=== PATIENT | male | born 1940 | race Caucasian/White ===

== ENCOUNTER → 2022-06-24 | Outpatient (CLI) | payer MEDICARE ==
--- NOTE | 2022-06-25 09:35 | CA ---
Transthoracic Echo Report Name: Tanmay Belcher Age: 82 Gender: M : 1940 Exam Date: 06/24/2022 12:53 Exam Location: [facility] Ht (in): 65 Wt (lb): 155 Ordering Physician: Ken Carmona DO Attending/Referring Phys: Aleshia Galicia [facility] [employer] Tayler Tobar RDCS Procedure CPT: Indications: R01.1 Cardiac Hx: Technical Quality: Fair Contrast 1: Total Dose (mL): Contrast 2: Total Dose (mL): MEASUREMENTS (Male / Female) Normal Values 2D ECHO LV Diastolic Diameter PLAX 3.7 cm 4.2 - 5.9 / 3.9 - 5.3 cm LV Systolic Diameter PLAX 2.5 cm IVS Diastolic Thickness 1.1 cm 0.6 - 1.0 / 0.6 - 0.9 cm LVPW Diastolic Thickness 1.3 cm 0.6 - 1.0 / 0.6 - 0.9 cm LV Relative Wall Thickness 0.7 RV Internal Dim ED PLAX 3.3 cm LA Volume 47.9 cm??? 18 - 58 / 22 - 52 cm??? M-MODE Aortic Root Diameter MM 3.2 cm LA Systolic Diameter MM 3.2 cm LA Ao Ratio MM 1.0 AV Cusp Separation MM 1.8 cm DOPPLER AV Peak Velocity 106.9 cm/s AV Peak Gradient 4.6 mmHg AV Mean Velocity 73.7 cm/s AV Mean Gradient 2.4 mmHg AV Velocity Time Integral 25.2 cm LVOT Peak Velocity 103.9 cm/s LVOT Peak Gradient 4.3 mmHg LVOT Velocity Time Integral 23.7 cm MV Area PHT 4.0 cm??? Mitral E Point Velocity 94.0 cm/s Mitral A Point Velocity 46.1 cm/s Mitral E to A Ratio 2.0 MV Deceleration Time 187.4 ms MV E' Velocity 8.7 cm/s Mitral E to MV E' Ratio 10.9 TR Peak Velocity 260.8 cm/s TR Peak Gradient 27.2 mmHg Right Ventricular Systolic Press 31.9 mmHg FINDINGS Left Ventricle Left ventricular cavity size normal. Mildly increased left ventricular wall thickness. Abnormal (paradoxical) septal motion consistent with postoperative state or LBBB. Normal left ventricular systolic function with no obvious regional wall motion abnormalities. Left ventricular ejection fraction is estimated at 55-60 %. Right Ventricle Normal right ventricular size and function. Right ventricular systolic pressure within normal limits. Right Atrium Normal right atrial size. Left Atrium Normal left atrial size. Mitral Valve Structurally normal mitral valve. Mild mitral regurgitation. Aortic Valve Trileaflet aortic valve. No aortic valve stenosis or regurgitation. Tricuspid Valve Structurally normal tricuspid valve. Mild tricuspid regurgitation. Pulmonic Valve Structurally normal pulmonic valve.mild pulmonic regurgitation. Pericardium No pericardial effusion. Aorta Normal size aortic root and proximal ascending aorta. CONCLUSIONS Left ventricular ejection fraction 55-60% RVSP 32 Mild mitral regurgitation Mild tricuspid regurgitation No pericardial effusion Previewed by: Dr. Antonio Alonzo DO (Electronically Signed) Final Date: 25 Jun 2022 09:34
== END | disposition home or self-care (01) ==
LOC: RADECHMAIN 12:42
PROVIDERS: ATTEND Internal Medicine Cardiovascular Disease
DX: I08.1 Rheumatic disorders of both mitral and tricuspid valves (principal); R01.1 Cardiac murmur, unspecified
CPT/HCPCS: 93306

== ENCOUNTER → 2024-01-05 | Outpatient (CLI) | payer MEDICARE ==
--- NOTE | 2024-01-05 13:58 | US ---
EXAMINATION TYPE: US carotid duplex BILAT DATE OF EXAM: 01/05/2024 COMPARISON: NONE CLINICAL INDICATION: Male, 83 years old with history of R09.89 R01.1; patient states pre stress test testing, no symptoms, no h/o stroke Additional History: .... TECHNIQUE: Grayscale, color Doppler and spectral Doppler evaluation of the bilateral carotid systems and vertebral arteries. Indirect Doppler criteria was utilized. FINDINGS: EXAM MEASUREMENTS: RIGHT: Peak Systolic Velocity (PSV) cm/sec ----- Right CCA: 96.9 ----- Right ICA: 129.0 ----- Right ECA: 110.0 ICA/CCA ratio: 1.3 RIGHT: End Diastole cm/sec ----- Right CCA: 11.1 ----- Right ICA: 22.2 ----- Right ECA: 0.0 LEFT: Peak Systolic Velocity (PSV) cm/sec ----- Left CCA: 91.6 ----- Left ICA: 138 ----- Left ECA: 173 ICA/CCA ratio: 1.5 LEFT: End Diastole cm/sec ----- Left CCA: 13.6 ----- Left ICA: 39.3 ----- Left ECA: 0.0 VERTEBRALS (direction of flow): Right Vertebral: Antegrade Left Vertebral: Antegrade Rhythm: Arrhythmia COLLECTION ANALYST NOTES: Mild homogeneous plaque with no stenosis seen Color Doppler imaging shows patency with blood flow throughout the carotid artery. Spectral waveforms are within normal limits. 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 Left: 50-69% stenosis of the carotid bifurcation. Criteria for Assigning % of Stenosis / Diameter reduction (Estimation based on the indirect measurements of the internal carotid artery velocities (ICA PSV). 1. Normal (no stenosis)=ICA PSV < 125 cm/s: ratio < 2.0: ICA EDV<40 cm/s. 2. Less than 50% stenosis=ICA PSV < 125 cm/s: ratio < 2.0: ICA EDV<40 cm/s. 3. 50 to 69% stenosis=ICA PSV of 125 to 230 cm/s: ration 2.0 ? 4.0: ICA EDV 40-100 cm/s. 4. Greater than 70% stenosis to near occlusion= ICA PSV > 230 cm/s: ratio > 4.0: ICA EDV > 100 cm/s. 5. Near occlusion= ICA PSV velocities may be low or undetectable: variable ratio and ICA EDV. 6. Total occlusion=unable to detect flow. [facility], , 01/05/2024 1:56 PM
--- NOTE | 2024-01-06 17:35 | CA ---
Transthoracic Echo Report Name: Tanmay Belcher Age: 83 Gender: M : 1940 Exam Date: 01/05/2024 14:32 Exam Location: [place] [facility] Ht (in): 65 Wt (lb): 150 Ordering Physician: Ken Carmona DO Attending/Referring Phys: Ken Carmona DO [employer] [place], BAM Procedure CPT: Indications: R01.1 Murmur Cardiac Hx: CABG Technical Quality: Fair Contrast 1: Total Dose (mL): Contrast 2: Total Dose (mL): MEASUREMENTS (Male / Female) Normal Values 2D ECHO LV Diastolic Volume MOD BP 47.4 cm??? 67 - 155 / 56 - 104 cm??? LV Systolic Volume MOD BP 14.1 cm??? 22 - 58 / 19 - 49 cm??? LV Ejection Fraction MOD BP 70.2 % >= 55 % LV Cardiac Index MOD BP 1142.0 cm???/min???m??? LV Diastolic Volume MOD 4C 53.3 cm??? LV Systolic Volume MOD 4C 11.7 cm??? LV Ejection Fraction MOD 4C 78.0 % LV Cardiac Index MOD 4C 1426.1 cm???/min???m??? LV Diastolic Length 4C 6.5 cm LV Systolic Length 4C 4.9 cm LV Diastolic Volume MOD 2C 40.0 cm??? LV Systolic Volume MOD 2C 16.3 cm??? LV Ejection Fraction MOD 2C 59.2 % LV Cardiac Index MOD 2C 813.0 cm???/min???m??? LV Diastolic Length 2C 6.2 cm LV Systolic Length 2C 5.4 cm LA Volume 36.0 cm??? 18 - 58 / 22 - 52 cm??? LA Volume Index 20.2 cm???/m??? 16 - 28 cm???/m??? M-MODE Aortic Root Diameter MM 2.5 cm LA Systolic Diameter MM 3.4 cm LA Ao Ratio MM 1.4 DOPPLER AV Peak Velocity 92.0 cm/s AV Peak Gradient 3.4 mmHg MV Area PHT 2.0 cm??? Mitral E Point Velocity 80.5 cm/s Mitral A Point Velocity 83.5 cm/s Mitral E to A Ratio 1.0 MV Deceleration Time 378.9 ms TR Peak Velocity 237.5 cm/s TR Peak Gradient 22.6 mmHg FINDINGS Left Ventricle Left ventricular ejection fraction is estimated at 55-60 %. Left ventricular cavity size normal. Left ventricular wall thickness normal. No obvious regional wall motion abnormalities. Right Ventricle Mild right ventricular dilatation. Right ventricular systolic pressure within normal limits. Right Atrium Mild right atrial dilatation. Left Atrium Mild left atrial dilatation. Mitral Valve Structurally normal mitral valve. Mild mitral regurgitation. No mitral stenosis. Aortic Valve Trileaflet aortic valve. No aortic stenosis. Trace aortic regurgitation. Tricuspid Valve Structurally normal tricuspid valve. Mild tricuspid regurgitation. No tricuspid stenosis. Pulmonic Valve Structurally normal pulmonic valve. Trace pulmonic regurgitation. No pulmonic stenosis. Pericardium No pericardial or pleural effusion. Aorta Normal size aortic root and proximal ascending aorta. CONCLUSIONS Left ventricular ejection fraction is estimated at 55-60 %. No obvious regional wall motion abnormalities. Mild RV dilatation. Mild biatrial dilatation Mild mitral regurgitation, mild tricuspid regurgitation Previewed by: Dr Wallace Abraham (Electronically Signed) Final Date: 06 January 2024 17:34
== END | disposition home or self-care (01) ==
LOC: RADUSWWP 13:04
PROVIDERS: ATTEND Internal Medicine Cardiovascular Disease
DX: R09.89 Other specified symptoms and signs involving the circulatory and respiratory systems (principal); R01.1 Cardiac murmur, unspecified; E78.5 Hyperlipidemia, unspecified; E78.6 Lipoprotein deficiency; I10 Essential (primary) hypertension; R06.02 Shortness of breath; R97.20 Elevated prostate specific antigen [PSA]; R97.8 Other abnormal tumor markers; Z13.1 Encounter for screening for diabetes mellitus; I08.1 Rheumatic disorders of both mitral and tricuspid valves; I37.1 Nonrheumatic pulmonary valve insufficiency
CPT/HCPCS: 93306; 93880

== ENCOUNTER → 2024-02-08 | Outpatient (CLI) | payer MEDICARE ==
--- NOTE | 2024-02-10 13:53 | MR ---
EXAMINATION TYPE: MR angio neck wo/w con DATE OF EXAM: 02/08/2024 4:17 PM COMPARISON: 01/05/2024. 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 2-D and 3-D [id number] imaging. 3-D reformatte d images and maximum intensity projection reformatted images were submitted for evaluation. IV Contrast: 7ml mL Gadobutrol (None, if empty) FINDINGS: RIGHT CAROTID SYSTEM: The common carotid artery is patent. The carotid bifurcations that she no evide nce for hemodynamically significant stenosis. The internal carotid arteries patent. LEFT CAROTID SYSTEM: The common carotid artery is patent. The carotid bifurcations that she no evide nce for hemodynamically significant stenosis. The internal carotid arteries patent. The origins of the great vessels and vertebral arteries appear unremarkable. The vertebral arteries are codominant IMPRESSIONS: 1. No evidence of significant stenosis at the carotid bifurcations. The carotid and vertebral arterie s are patent. Given findings on ultrasound. Findings are felt to possibly represent artifact on ultra sound imaging 2. No evidence aneurysm. [facility], , 02/10/2024 1:50 PM
== END | disposition home or self-care (01) ==
LOC: RADMRIMAIN 15:04
PROVIDERS: ATTEND Internal Medicine Cardiovascular Disease
DX: I65.29 Occlusion and stenosis of unspecified carotid artery (principal)
CPT/HCPCS: 70549; A9585